=== PATIENT | male | born 1980 | race African-American/Black ===

== ENCOUNTER 2019-05-27 10:19 | Observation (INO) ==
[2019-05-27] MEDS ORDERED: PATIENT'S OWN MED SUBQ SCH (13:30)
[2019-05-27] MEDS: NEURONTIN PO SCH (17:03)
[2019-05-27] MEDS: CREON PO SCH (17:03)
[2019-05-27 17:27] LABS: BASO# 0.01 X1000 (0.0-0.2); BASO% 0.2 % (0.0-0.8); EOS# 0.16 X1000 (0.0-0.7); EOS% 2.7 % (0.0-10.0); HEMATOCRIT 34.4 % (42.0-52.0); HEMOGLOBIN 11.2 g/dL (14.0-18.0); LYMPH# 1.14 X1000 (1.2-3.4); LYMPH% 19.5 % (20.5-51.1); MCH 28.2 PG (27-31); MCHC 32.6 g/dL (33-37); MCV 86.6 FL (81-99); MONO# 0.42 X1000 (0.11-0.59); MONO% 7.2 % (1.7-9.3); MPV 10.5 FL (7.4-10.4); NEUT# 4.12 X1000 (1.4-6.5); NEUT% 70.4 % (42.2-75.2); PLT 191 X1000 (130-400); RBC 3.97 XMIL (4.7-6.1); RDW 12.8 % (11.5-14.5); WBC 5.85 X1000 (4.8-10.8)
[2019-05-27 17:47] LABS: AGAP 10; BUN 15 mg/dL (8-22); CALCIUM 8.7 mg/dL (8.8-10.2); CHLORIDE 99 mmol/L (98-107); COSMO 285; CREATININE 1.2 mg/dL (0.7-1.2); ESTIMATED GFR > 60; GLUCOSE 316 mg/dL (70-104); POTASSIUM 4.1 mmol/L (3.5-5.1); SODIUM 136 mmol/L (136-145); TCO2 27 mmol/L (25-35)
[2019-05-27] MEDS: ZANTAC PO SCH (20:19)
--- NOTE | 2019-05-27 21:48 | HISTORY AND PHYSICAL ---
CHIEF COMPLAINT: Intractable diarrhea, also severe foot pain. HISTORY OF PRESENT ILLNESS: He is a 38-year-old, -[place] male, who came to my office today basically with intractable diarrhea. Patient was seen by Dr. Roberson. He was diagnosed with pancreatic insufficiency, was started on pancreatic enzymes and PPI. Despite, he continues to have diarrhea, not able to walk, and also has some bilateral foot pain. Basically admitted to the hospital and workup for chronic diarrhea. PAST MEDICAL HISTORY: Type 1 diabetes, subclinical hyperthyroidism, diabetic neuropathy, tobacco abuse, vitamin D deficiency, and pancreatic insufficiency. PAST SURGICAL HISTORY: Bilateral cataract surgery and right foot hammertoe surgery. MEDICATIONS: Gabapentin 800 three times daily, NovoLog insulin on the pump, vitamin D 50,000 units once a week, Zantac 150 once daily, Zenpep 3 times daily. ALLERGIES: Not known. SOCIAL HISTORY: Single, unemployed, disabled, lives in [place]. Smoking 1 pack a day. No drugs. No alcohol abuse. FAMILY HISTORY: Father is alive, mom is alive in good health, and sister also in good health. HEALTH MAINTENANCE: Reported flu vaccine in 2015, colonoscopy in March [address] Roberson, pneumococcal vaccine in 2014. REVIEW OF SYSTEMS: HEENT: No headache. No vision problem. No earache. No sore throat. Neck: No goiter. No lymphadenopathy. No bruit. Cardiopulmonary: No chest pain, shortness of breath, PND, orthopnea. Gastrointestinal: Abdominal cramping, diarrhea, weight loss. Swelling of legs and decreased sensory exam. No neurological symptoms or weakness. OBJECTIVE: vital signs: Temperature is 97.8 degrees, pulse 83, blood pressure 140/73, room air 100%. Height 6 feet 3 inches, 153 pounds. HEENT: Atraumatic, normocephalic. Pupils equal, react to light. Neck: Supple. No lymphadenopathy. Chest: Bilateral air entry. Cardiovascular: Heart sounds are regular. Gastrointestinal: Belly is soft, nontender. No signs of peritonitis. Neurologic: Decreased sensory exam in both feet. He has ZHEN hose stockings noted. No obvious neurological deficits. INVESTIGATIONS: White cell count 5.8, hematocrit 34, platelets 191,000. SMA-7 is normal. Glucose 316. Labs which were done in my office: A1c 8.8. Liver enzymes are normal. LDL 71, cholesterol 161. T4 of 1.72 and TSH is normal. Uric acid 4.1. Urinalysis, he had 1+ sugar in the urine, 2+ blood, and protein was trace. ASSESSMENT AND PLAN: 1. A 38-year-old, -[place] male, basically admitted to the hospital with chronic diarrhea. 2. Hyperthyroidism, stable. 3. Pancreatic insufficiency. Continue on Zenpep, Creon, low-fat diet. I ordered a bunch of stool testing, which includes checking the fat content, electrolytes, Clostridium difficile, Hemoccult, lactoferrin, pancreatic elastase, white cells, and stool cultures. Continue on Zantac. 4. Type 1 diabetes, on insulin pump. 5. Neuropathy pain, on Neurontin. 6. Urine dipstick was negative for proteinuria and also LDL is in target. Consider Wound consult for the feet. Based on these tests, further recommendations will be followed. cc: Jorge Allison MD
[2019-05-28] MEDS ORDERED: D50W SYRINGE IV ONE ×2 (07:45)
[2019-05-28] MEDS ORDERED: D50W SYRINGE IV PRN (07:45)
[2019-05-28] MEDS ORDERED: D5 1/2 NS 1,000 ML IV SCH ×2 (08:00→19:30)
[2019-05-28] MEDS: NEURONTIN PO SCH ×3 (08:50→17:05)
[2019-05-28] MEDS: ZANTAC PO SCH ×2 (08:51→22:22)
[2019-05-28] MEDS: CREON PO SCH ×3 (08:51→17:05)
[2019-05-28] MEDS: HUMALOG SUBQ SCH ×3 (12:27→22:23)
--- NOTE | 2019-05-28 13:34 | Diag Imaging Result Doc PS360 ---
EXAM: FOOT COMPLETE RIGHT 05/28/2019 HISTORY: boggy painful right lateral heel TECHNIQUE: Right foot three views COMMENT: There is no evidence of fracture or dislocation periosteal reaction or erosion. There is mild posterior heel spurring. IMPRESSION: No evidence of acute bony disease. Electronically signed by Jj Marino 05/28/2019 1:31 PM
--- NOTE | 2019-05-28 21:20 | PROGRESS NOTE ---
DATE: 05/28/2019 SUBJECTIVE: 1. This morning, patient became unresponsive. Blood sugars dropped 20. He was given D50 2 amps followed by D5 half-normal saline. 2. He has significant diarrhea. 3. He has a pressure ulcer on the right foot, seen by [facility]. 4. Insulin pump was discontinued. 5. He is also not able to empty the bladder. OBJECTIVE: Temperature is 98 degrees, pulse 93, vitals are stable. He is waking up after D50. Physical exam: No change. No neurological deficits. Blood sugars now 241. ASSESSMENT AND PLAN: 1. Altered mental status due to hypoglycemia. Discontinue insulin pump. 2. Continue intravenous fluids. 3. Bladder retention. Straight catheterization in and out. 4. Diarrhea, due to pancreatic insufficiency. Waiting for further studies, pancreatic elastase and fat content. 5. Right foot ulcer, seen by [facility]. Will do the plain x-rays along with arterial flow studies, and will follow up. LEVEL OF DOCUMENTATION: 35 minutes. cc: Jorge Allison MD
[2019-05-29] MEDS: HUMALOG SUBQ SCH ×4 (06:56→22:27)
--- NOTE | 2019-05-29 07:22 | VASCULAR LAB ---
DATE: 05/28/2019 STUDY: Bilateral lower extremity segmental Doppler exam. [employer] TEAM MEMBER: Matthias. REQUESTING PHYSICIAN: Dr. Allison. INDICATION: Ulcers on the feet. FINDINGS: Brachial on the right was not obtainable, left 121. High thigh on the right is 185, left 166. Low thigh on the right is 154, on the left 171. Calf on the right is 145, on the left 127. DP is 132, on the left 137. PT on the right is 134, left 132. Toe pressure on the right is 98, on the left 114. SUGAR on the right is 1.1, on the left 1.13. Toe brachial indices on the right 0.81, on the left 0.94. Overall normal appearing waveforms and ABIs bilaterally. There is some mild blunting of the toe waveforms. SUMMARY: No significant abnormality from this lower extremity segmental Doppler with pulsatile flow noted to the level of the toes bilaterally. cc: MD Jorge Olivares MD
[2019-05-29] MEDS: CREON PO SCH ×3 (10:44→18:39)
[2019-05-29] MEDS: NEURONTIN PO SCH ×3 (10:45→18:39)
[2019-05-29] MEDS: ZANTAC PO SCH ×2 (10:45→22:23)
--- NOTE | 2019-05-29 21:37 | PROGRESS NOTE ---
DATE: 05/29/2019 SUBJECTIVE: The patient's mental status improved. Blood sugar is going up. Discontinued fluids, emptying the bladder. Still greasy stooling. He is back on insulin pump. He is anxious to go home. OBJECTIVE: On exam, temperature is 97 degrees, pulse 85, blood pressure is 112/72. HEENT exam within normal limits. Chest is clear. Heart sounds are regular. Belly is soft, nontender. No obvious deficits. ASSESSMENT AND PLAN: 1. Hypoglycemia, improving. We will adjust insulin pump. 2. Diarrhea, due to pancreatic insufficiency. He needs low-fat diet along with pancreatic enzymes. 3. Peripheral neuropathy, dry skin. Arterial flow studies: Normal ankle-brachial indices bilaterally. Continue the care of the feet, and if he is stable in the next 24 hours we will discharge in the morning. Level of documentation 35 minutes. cc: Jorge Allison MD
[2019-05-30] MEDS: HUMALOG SUBQ SCH ×3 (09:08→17:48)
[2019-05-30] MEDS: NEURONTIN PO SCH ×3 (09:08→17:46)
[2019-05-30] MEDS: ZANTAC PO SCH (09:08)
[2019-05-30] MEDS: CREON PO SCH ×3 (09:08→17:46)
[2019-05-30 15:59] VITALS: BP 98/61
--- NOTE | 2019-05-30 20:12 | GENERAL SURGERY CONSULTATION ---
DATE: 05/30/2019 REASON FOR CONSULTATION: Diabetic heel ulcer and infection. HISTORY OF PRESENT ILLNESS: This is a 38-year-old male who has had a chronic pressure ulcer on his right heel that began last year after apparent prolonged episodes of sitting on a commode with intractable diarrhea. This has been a chronic problem for him for years. For the heel wound, he has been managed by the physicians at the [facility], and they recently discharged him 2 weeks ago. However, since that time she has developed some drainage and pain. PAST MEDICAL HISTORY: 1. Type 1 diabetes. 2. Diabetic neuropathy. 3. Pancreatic insufficiency. PAST SURGICAL HISTORY: 1. Cataract surgery. 2. Right foot hammertoe surgery. HOME MEDICATIONS: 1. Gabapentin. 2. NovoLog. 3. Vitamin D. 4. Zantac. ALLERGIES: Acetaminophen. FAMILY HISTORY: Reviewed and noncontributory. SOCIAL HISTORY: He does smoke 1 pack per day. He is unemployed and disabled. No alcohol or illicit drug use. REVIEW OF SYSTEMS: Ten systems reviewed and negative except as noted above. PHYSICAL EXAMINATION: Vital Signs: Temperature 97.7 degrees, pulse 84, respirations 20, blood pressure 98/61, O2 saturation 100%. General: Well developed, somewhat chronically ill-appearing male in no acute distress. HEENT: Normocephalic, atraumatic. Extraocular muscles intact. Pupils equal, round, reactive to light. Sclerae anicteric. Neck: Supple. No thyromegaly. CV: Regular rate and rhythm. Respiratory: Bilaterally equal breath sounds. No work of breathing. GI: Soft, nontender, nondistended. No organomegaly or mass. Skin: Warm and dry. No rash. There is a right heel ulcer with some soft tissue injury. There is some purulent discharge, but no obvious exposed bone. Musculoskeletal: Moves all extremities equally and well. LABORATORY: Reviewed and unremarkable. IMAGING: Right foot x-ray shows no acute bony disease, and extremity arterial study shows no abnormal signals to suggest significant peripheral arterial disease. ASSESSMENT AND PLAN: A 38-year-old male with right heel ulcer secondary to diabetic peripheral neuropathy and prolonged immobility. He had some superficial infection, but underlying soft tissue injury. I was able to drain the infection with just exploring the wound today. I think, going forward, I will advise him to pack the wound with Vashe moistened gauze daily, and then be reassessed by his wound care clinic in the near future. It may require operative debridement at some point. cc: MD Jorge Mcknight MD MTDD
--- NOTE | 2019-06-01 16:41 | DISCHARGE SUMMARY ---
ADMISSION DATE: 05/27/2019 DISCHARGE DATE: 05/30/2019 DISCHARGING DIAGNOSIS: Intractable diarrhea due to steatorrhea due to pancreatic insufficiency. SECONDARY DIAGNOSES: 1. Complicated diabetes insulin dependent. 2. Hypoglycemia. 3. Peripheral neuropathy. 4. Right foot neuropathic ulcer. 5. Subclinical hypothyroidism. 6. Tobacco abuse. 7. Vitamin D deficiency. CONSULTANTS: Dr. Estrella and Wound Care consultation, [facility]. PROCEDURES: Arterial flow studies. Overall normal waveforms SUGAR bilaterally. Right SUGAR 1.1, left side is 1.1. TBI index right side 0.8, left side is 0.94. BRIEF HISTORY: Please see the H and P that was done on 05/27/2019. In brief, he is a 38-year-old male with complicated diabetes, insulin dependent, was admitted to the hospital with fluctuation of blood sugars, diarrhea, dehydration, and right foot soft tissue infection. HOSPITAL COURSE: 1. For diarrhea, he was already worked up before by Dr. Roberson. He has abundant fat in the stool due to pancreatic insufficiency. Pancreatic elastase test was done pending. Lactoferrin is negative. Stool occult blood was negative. C. difficile was negative. Stool white blood cells, none seen. 2. He was given pancreatic supplementation with low-fat diet. 3. Altered mental status due to hypoglycemia. Insulin pump was discontinued, and I did adjust the basal insulin as well as boluses. 4. He also has a bladder retention that subsequently improved. 5. Right foot heel infection soft tissue. X-rays with no evidence of osteo. It was drained by Dr. Estrella. Arterial flow studies are normal. We will continue to treat outpatient with Bactrim and wound clinic in [place]. LABORATORY DATA: CBC: White cell count 5.8, hematocrit 34, platelets 191,000. SMA-7 is normal. Creatinine 1.2. Stool for H. pylori was negative. Stool for lactoferrin is negative. Stool for fat content is high at 26. Pancreatic elastase test is still pending. DISCHARGE INSTRUCTIONS: Insulin pump. Adjust the insulin boluses. Last A1c 9.1. Neurontin 800 t.i.d., Zantac 1 capsule p.o. t.i.d., low-fat diet, Bactrim 1 tablet p.o. b.i.d. Follow up at wound clinic in [place] as well as in my office in 10 days. cc: MD Abel Villalta MD Khurshid Yousuf, MD MTDD
== END 2019-05-30 18:48 | disposition home health service (06) ==
LOC: DIRADM 10:19 → INTOOBSV 10:19 → 3N 10:55
PROVIDERS: ADMIT Internal Medicine; ATTEND Internal Medicine
CPT/HCPCS: 73630; 80048; 82270; 82438; 82656; 82710; 82948; 83630; 83735; 84100; 84302; 84999; 85025; 87045; 87046; 87205; 87324; 87338; 87449; 89055; 93923; 96374; A9270; G0378; G0379; J1815; XXXXX